=== PATIENT | male | born 1955 | race Caucasian/White ===

== ENCOUNTER 2016-12-14 16:56 | Emergency (ER) | payer SELFPAY ==
[~2016-12-14] VITALS: Ht 182.9 cm; Wt 99.0 kg
[2016-12-14] MEDS ORDERED: SODIUM CHLORIDE 0.9% 1,000 ML IV ONE (17:06)
[2016-12-14] MEDS ORDERED: DIAZEPAM 5 MG/ML, 2ML ONE (17:17)
[2016-12-14] MEDS ORDERED: HYDROmorphone 1 MG/ML, 1ML ONE ×2 (17:17→18:19)
[2016-12-14] MEDS: HYDROmorphone 1 MG/ML, 1ML IVPush PRN ×2 (17:22→18:22)
[2016-12-14] MEDS ORDERED: SODIUM CHLORIDE FLUSH 10ML SYR IVF ONE (17:30)
[2016-12-14] MEDS ORDERED: PLEASE ENTER ALLERGIES MC SCH ×2 (17:30)
[2016-12-14] MEDS ORDERED: PLEASE ENTER HEIGHT AND WEIGHT MC SCH (17:30)
[2016-12-14] MEDS ORDERED: DIAZEPAM 5 MG/ML, 2ML IVPush ONE (17:30)
[2016-12-14 17:50] LABS: BLOOD UREA NITROGEN 16 mg/dL (7-18)
[2016-12-14] MEDS ORDERED: CYCL-259 PO (18:16)
[2016-12-14] MEDS ORDERED: TAMS-11 PO (18:16)
[2016-12-14] MEDS ORDERED: OXYC1TAB8 PO (18:16)
[2016-12-14] MEDS ORDERED: RANI150T60 PO (18:16)
[2016-12-14] MEDS ORDERED: ATOR10TA9 PO (18:16)
[2016-12-14] MEDS ORDERED: OXYcodone/APAP 5/325MG TABLET PO ONE (19:00)
[2016-12-14] MEDS ORDERED: OXYcodone/APAP 5/325MG TABLET ONE (19:11)
[2016-12-14 20:15] VITALS: BP 155/80
== END 2016-12-14 20:28 | disposition home or self-care (01) ==
LOC: ED 19:37
DX: S93.491A Sprain of other ligament of right ankle, initial encounter (principal); S73.101A Unspecified sprain of right hip, initial encounter; I10 Essential (primary) hypertension; W19.XXXA Unspecified fall, initial encounter; Y93.89 Activity, other specified; Y99.8 Other external cause status; Y92.89 Other specified places as the place of occurrence of the external cause
CPT/HCPCS: 36415; 73502; 73564; 73610; 80048; 82040; 85025; 85610; 96361; 96374; 96375; 96376; 99285; J1170; J3360; J7030